=== PATIENT | female | born 1930 | race Caucasian/White ===

== ENCOUNTER 2018-10-16 17:27 | Inpatient (IN) ==
--- NOTE | 2018-10-16 18:45 | EKG Report ---
Test Performed on : 10/16/2018 6:22:56 PM Test Reason : CP Blood Pressure : / mmHG Vent. Rate : 079 BPM Atrial Rate : 133 BPM P-R Int : 000 ms QRS Dur : 074 ms QT Int : 354 ms P-R-T Axes : 000 -21 009 degrees QTc Int : 405 ms Atrial fibrillation. Abnormal ECG When compared with ECG of 09-OCT-2018 15:26, (Unconfirmed) No significant change was found Unconfirmed Result
[2018-10-16 18:49] LABS: BASO# 0.01 X1000 (0.0-0.2); BASO% 0.1 % (0.0-0.8); EOS# 0.05 X1000 (0.0-0.7); EOS% 0.4 % (0.0-10.0); HEMATOCRIT 28.8 % (37.0-47.0); HEMOGLOBIN 9.6 g/dL (12.0-16.0); IMM GRAN# 0.06 X1000 (0.0-0.04); IMM GRAN% 0.5 % (0.0-0.5); LYMPH# 0.77 X1000 (1.2-3.4); LYMPH% 6.2 % (20.5-51.1); MCHC 33.3 g/dL (33-37); MONO# 0.11 X1000 (0.11-0.59); MONO% 0.9 % (1.7-9.3); MPV 8.4 FL (7.4-10.4); NEUT# 11.41 X1000 (1.4-6.5); NEUT% 91.9 % (42.2-75.2); PLT 318 X1000 (130-400); RDW 14.9 % (11.5-14.5); WBC 12.41 X1000 (4.8-10.8)
[2018-10-16 19:03] LABS: ALBUMIN 3.9 g/dL (3.5-5.0); CALCIUM 8.9 mg/dL (8.8-10.2); CREATININE 1.2 mg/dL (0.5-0.9); TOTAL BILIRUBIN 0.6 mg/dL (0.20-1.00); TOTAL PROTEIN 6.5 g/dL (6.3-8.3)
--- NOTE | 2018-10-16 19:14 | Diag Imaging Result Doc PS360 ---
EXAM: CHEST-2 VIEWS INDICATION: sob, chf TECHNIQUE: 2 views COMPARISON: 10/09/2018 FINDINGS: The right chest port is in stable position. Biapical pleural scarring is unchanged. There is mild blunting of the costophrenic angle suggesting very small effusions. These are stable. The central vasculature is mildly prominent suggesting mild pulmonary venous congestion. There is no evidence of pneumothorax. The cardiac silhouette is borderline to mildly prominent but stable. IMPRESSION: Suggestion of mild pulmonary venous congestion and very small effusions that are unchanged. Electronically signed by Mikie Hardwick 10/16/2018 7:11 PM
[2018-10-16] MEDS ORDERED: LASIX IV ONE (19:45)
[2018-10-16 22:58] LABS: BILIRUBIN URINE NEGATIVE (NEGATIVE); BLOOD URINE NEGATIVE (NEGATIVE); CLARITY CLEAR (CLEAR); COLOR YELLOW; GLUCOSE URINE NEGATIVE (NEGATIVE); KETONE URINE NEGATIVE (NEGATIVE); LEUKOCYTES URINE NEGATIVE (NEGATIVE); NITRITE URINE NEGATIVE (NEGATIVE); PROTEIN URINE NEGATIVE (NEGATIVE); URINE BACTERIA NEGATIVE /HFP; URINE EPITHELIAL CELLS <10 /HPF (<10); URINE RBC <10 /HPF (<10); URINE SOURCE CLEAN CATCH; URINE WBC <10 /HPF (<10); UROBILINOGEN URINE NORMAL
--- NOTE | 2018-10-17 02:01 | PROVIDER DOCUMENTATION ---
This chart was entered by Felicitas Pimentel Scribe, acting as scribe for Dave Gibson MD. HPI-General Adult - General Chief Complaint: Return/Recheck Stated Complaint: BODY SWELLING Time Seen by Provider: 10/16/18 17:48 Source: patient Allergies/Adverse Reactions: Patient Allergies Allergy/AdvReac Type Severity Reaction Status Date / Time Penicillins Allergy Severe ANAPHYLAXIS Verified 10/16/18 18:06 Corticosteroids Allergy Unknown Unknown Verified 10/16/18 18:06 (Glucocorticoids) Iodinated Contrast- Oral and Allergy Unknown Unknown Verified 10/16/18 18:06 IV Dye levofloxacin Allergy Unknown Verified 10/16/18 18:06 tramadol Allergy RASH Verified 10/16/18 18:06 codeine AdvReac Severe VOMITING Verified 10/16/18 18:06 adhesive tape AdvReac Unknown Unknown Verified 10/16/18 18:06 hydrochlorothiazide AdvReac Unknown Verified 10/16/18 18:06 Home Medications: Home Medication List Medication Instructions Recorded Confirmed Last Taken Type Cyclobenzaprine [Flexeril] 10 mg PO Q8-12H PRN PRN 07/28/15 10/16/18 10/03/18 History Metoprolol Succinate E.r. [Toprol 50 mg PO DAILY 07/28/15 10/16/18 10/03/18 06:00 History Xl] Alprazolam [Xanax] 0.25 mg PO QHS #15 tablet 08/08/15 10/16/18 10/03/18 Rx Spironolactone 25 mg PO DAILY 01/03/17 10/16/18 10/03/18 History Amlodipine [Norvasc] 2.5 mg PO DAILY 08/29/18 10/16/18 10/03/18 06:00 History Cyanocobalamin (Vitamin B-12) 1,000 mcg PO DAILY 09/30/18 10/16/18 10/02/18 12:00 History [Vitamin B-12] Multivitamin with Minerals 1 each PO DAILY 09/30/18 10/16/18 10/03/18 History [Multiple Vitamin] Hydromorphone [Dilaudid] 1 - 2 tab PO PRN PRN 10/03/18 10/16/18 Unknown History Mv-Mn/Iron/FA/Herbal Cmplx#190 1 tab PO DAILY 10/03/18 10/16/18 10/03/18 History [Vitamin D3 Complete Caplet] Allopurinol 100 mg PO DAILY 10/16/18 10/16/18 Unknown History Hydrocodone/Acetaminophen 1 tab PO PRN PRN 10/16/18 10/16/18 Unknown History [Hydrocodone-Acetamin 5-325 mg] Irbesartan 150 mg PO DAILY 10/16/18 10/16/18 Unknown History Levofloxacin 500 mg PO DAILY 10/16/18 10/16/18 10/16/18 History Metoclopramide HCl 10 mg PO DIRECTED 10/16/18 10/16/18 Unknown History Promethazine [Phenergan] 25 mg PO Q6H PRN PRN 10/16/18 10/16/18 Unknown History Sodium Polystyrene Sulfonate 15 ml PO DIRECTED 10/16/18 10/16/18 Unknown History [Kionex] Vitamin B Complex/Folic Acid [Cvs 0.4 mg PO DAILY 10/16/18 10/16/18 Unknown History Balanced B-100 Tr Caplet] Zinc 50 mg PO DAILY 10/16/18 10/16/18 Unknown History - History of Present Illness -Gen Adult Nature of Presenting Problems: Pt is 88/F presenting to ED w/ Lower extremity swelling that has worsened over the past week. Pt has liver cancer and is currently undergoing chemotherapy treatment. She sts that she has some SOB, but denies and C/P. Pt was seen here last week for the same. Pt has hx of CHF but is not currently on any lasix for edema. Location of Pain/Injury: reports: other (edema in lower extremities) Pain Radiation: reports: no radiation Quality of Pain: reports: none Severity: reports: moderate Onset/Duration: reports: 1 week ago Timing: reports: still present, getting worse Context/Activities at Onset: reports: none Modifying Factors: improves with: nothing Associated Symptoms: reports: shortness of breath. denies: chest pain, diaphoresis, weakness Similar Symptoms Previously?: Yes Recently seen or treated by another doctor?: Yes Review of Systems - Adult - REVIEW OF SYSTEMS - ADULT Constitutional: reports: no symptoms reported. denies: chills, fever Eyes: reports: no symptoms reported Ears, Nose, Mouth & Throat: reports: no symptoms reported Cardiovascular: reports: edema, irregular heart rate. denies: chest pain Respiratory: reports: shortness of breath. denies: cough, wheezing Gastrointestinal: reports: no symptoms reported. denies: abdominal pain, diarrhea, nausea, vomiting Genitourinary: reports: no symptoms reported Musculoskeletal: reports: no symptoms reported Integumentary: reports: no symptoms reported Neurological: reports: no symptoms reported. denies: headache/migraines, numbness, slurred speech Psychiatric: reports: no symptoms reported Past History - Adult - PAST MEDICAL HISTORY-ADULT Review of Records: reports: Old Records Reviewed, Nursing Assessment Review, Medications Reviewed, Social history reviewed & non-contributory. Major Childhood Illnesses: reports: denies history Cardiovascular: reports: A-Fib, HTN, hyperlipidemia Respiratory: reports: asthma Gastrointestinal: reports: denies history Obstetrical/Gynecological: reports: denies history Genitourinary: reports: denies history Musculoskeletal: reports: chronic pain Neurological: reports: Seizures/Epilepsy Psychiatric: reports: denies history Endocrine/Immune: reports: denies history Other Conditions: reports: other cancer (skin) - PRIOR SURGERIES/PROCEDURES Surgical/Procedure History: reports: hysterectomy, orthopedic (extremity), back/neck - IMMUNIZATION STATUS Childhood Immunizations: See Nurse Assessment Flu Vaccine: See Nurse Assessment - FAMILY HISTORY Family History: reviewed, not pertinent - SOCIAL HISTORY Smoking: quit greater than 1 year Substance Use: none/never Alcohol Use Frequency: never Physical Exam-General - PHYSICAL EXAM-ADULT Initial Vital Signs Reviewed: Yes - CONSTITUTIONAL General Appearance: appears well, alert, no apparent distress - EYES Eyes: PERRL/EOMI, pink conjunctivae - HEAD, EARS, NOSE, MOUTH & THROAT HENMT: normocephalic/atraumatic, moist mucous membranes, normal ENT inspection, TMs normal - NECK Neck: non-tender, full range of motion, supple, normal inspection - RESPIRATORY Respiratory: chest non-tender, normal breath sounds, crackles (crackles in lower han bilaterally) - CARDIOVASCULAR Cardiovascular: JVD, irregularly irregular, other (pt has +3 pitting edema lower extremities bilaterally from knees down) - GASTROINTESTINAL (ABDOMEN) Abdominal Exam: normal bowel sounds, non tender, soft - MUSCULOSKELETAL Extremity: normal range of motion, non-tender, normal gait, normal inspection, s welling - SKIN Integumentary: normal color, warm/dry - NEUROLOGIC Neurologic: grossly normal - PSYCHIATRIC Psych/Mental Status: normal mood/affect, normal thought content, normal thought process Progress - PLAN OF CARE/RESULTS Progress/Plan/Lab Results: Vital Signs - 8 hr 10/16/18 17:39 Temperature 98.2 F Pulse Rate 89 Respiratory Rate 18 Blood Pressure 135/69 O2 Sat by Pulse Oximetry 95 Orders Category Date Time Status cxr [CHEST-2 VIEWS] [RAD] Stat Exams 10/16/18 18:21 Ordered BNP [PRO B-NATRIURETIC PEPTIDE] Stat Lab 10/16/18 18:23 Ordered CBC WITH ELECTRONIC DIFF [HEME] Stat Lab 10/16/18 18:23 Ordered COMPREHENSIVE METABOLIC PANEL [CHEM] Stat Lab 10/16/18 18:23 Ordered TROPONIN T Stat Lab 10/16/18 18:20 Ordered EKG [EKG] Stat Ther 10/16/18 18:20 Ordered Result Diagrams: 10/16/18 18:28 10/16/18 18:28 - EKG 1 Time of EKG reading by physician:: 18:30 EKG Read and Signed by:: Melissa Gonzalez EKG Interpretation (*Must complete 3 of following elements*): Abnormal (atrial fibrillation) Rate: 79 Rhythm: atril fibrillation [place]: normal QRS: normal RI Interval: normal ST Wave: normal - CONSULTS/PCP/HOSPITALIST Notification #1 *Consult/PCP/Hospitalist*: Dr. Kaiser Time Discussed: 19:52 Consult Disposition: Admit (Hx, PE and patient care discussed with Dr. Kaiser. Accepted.) Departure - Departure Date of Disposition Decision: 10/16/18 Time of Disposition Decision: 19:51 DIAGNOSIS: CHF exacerbation Qualifiers: Heart failure type: unspecified Qualified Code(s): I50.9 - Heart failure, unspecified Disposition: ADMITTED INPATIENT 09 Certified Medical Emergency: Emergent Condition: Stable - Critical Care Note This patient required my direct & personal management of CC.: No Attestation - Physician/ AMY Attestation Patient care was provided by Advanced Practice Provider:: No The physician spent face to face time with patient:: Yes Advanced Practice Provider documentation review:: Supervising physician onsite and consulted in the evaluation and care of this patient. The physician did have a face to face encounter with the patient. This chart was documented by the indicated scribe, (Felicitas Pimentel Scribe) and accurately reflects the services I performed and decisions made by me, Dave Jay MD, as attested by the provider's signature.
[2018-10-17] MEDS ORDERED: NORVASC PO ONE (14:18)
[2018-10-17] MEDS ORDERED: FLEXERIL PO PRN (14:20)
[2018-10-17] MEDS ORDERED: NORCO-5 PO PRN (14:20)
[2018-10-17 19:02] LABS: ALBUMIN 3.2 g/dL (3.5-5.0); CALCIUM 8.5 mg/dL (8.8-10.2); CREATININE 1.3 mg/dL (0.5-0.9); POTASSIUM 4.4 mmol/L (3.5-5.1); TOTAL BILIRUBIN 0.4 mg/dL (0.20-1.00)
[2018-10-17 19:11] LABS: BASO% 0.2 % (0.0-0.8); EOS# 0.06 X1000 (0.0-0.7); EOS% 0.1 % (0.0-10.0); HEMATOCRIT 27.2 % (37.0-47.0); IMM GRAN# 3.96 X1000 (0.0-0.04); IMM GRAN% 8.6 % (0.0-0.5); LYMPH# 0.97 X1000 (1.2-3.4); LYMPH% 2.1 % (20.5-51.1); MCHC 33.1 g/dL (33-37); MCV 90.7 FL (81-99); MONO# 0.14 X1000 (0.11-0.59); MONO% 0.3 % (1.7-9.3); MPV 9.6 FL (7.4-10.4); NEUT# 40.67 X1000 (1.4-6.5); NEUT% 88.7 % (42.2-75.2); PLT 262 X1000 (130-400); RDW 14.9 % (11.5-14.5)
[2018-10-17 19:45] LABS: BANDS 3 % (0-1); LYMPHS 2 % (21-51); SEGS 95 % (42-75)
[2018-10-17 19:46] LABS: ANISOCYTOSIS OCCASIONAL; MICROCYTOSIS OCCASIONAL
[2018-10-17 19:48] LABS: OVALOCYTES OCCASIONAL; POIKILOCYTOSIS OCCASIONAL
[2018-10-17 19:49] LABS: HYPOCHROM 2+
[2018-10-17] MEDS ORDERED: XANAX PO SCH (21:00)
[2018-10-18] MEDS ORDERED: TOPROL XL PO SCH (09:00)
[2018-10-18] MEDS ORDERED: ALDACTONE PO SCH (09:00)
[2018-10-18] MEDS ORDERED: ZYLOPRIM PO SCH (09:00)
[2018-10-18] MEDS ORDERED: AVAPRO PO SCH ×2 (09:00)
[2018-10-18] MEDS ORDERED: NORVASC PO SCH (09:00)
[2018-10-18] MEDS ORDERED: BLISTEX MEDICATED BERRY LIP BALM TOP PRN (09:43)
--- NOTE | 2018-10-18 13:20 | Diag Imaging Result Doc PS360 ---
EXAM: CHEST-2 VIEWS 10/18/2018 HISTORY: cough TECHNIQUE: PA and lateral chest COMMENT: There is some improvement in the pleural fluid collections present on 10/16/2018. There is an ill-defined nodular opacity laterally in the right lung probably in the middle lobe. This is not changed. There has been multilevel kyphoplasty in the lower thoracic and lumbar spine. IMPRESSION: Improved pleural effusions. Electronically signed by Sam Bernal 10/18/2018 1:18 PM
[2018-10-18 15:47] VITALS: BP 131/58
--- NOTE | 2018-10-25 11:27 | HISTORY AND PHYSICAL ---
HISTORY OF PRESENT ILLNESS: This is a regular office patient of natacha, an 88-year-old female who recently was diagnosed with cancer with large lesions in her liver. She presented to the ER complaining of swelling in her lower extremities that has worsened over the past week. She is undergoing chemotherapy currently. She has been short of breath. Denies chest pain. She had been seen here earlier in the week with the same symptoms. She has a distant history of CHF but nothing lately. In the ER, she had a temperature of 98.2, pulse 89, respiratory rate 18, blood pressure 135/69, O2 saturation was 95%. She had an EKG which showed atrial fibrillation, rate of 79. They admitted her as a CHF. Her laboratory data from admission showed white count was 12,410, hematocrit was 28.8, platelet count was 318. Her comp showed BUN of 34, creatinine 1.2, sodium was 130, potassium 5, chloride 93, CO2 was 25. BUN and creatinine ratio was 28. Glucose 108. LFTs with slight elevation of AST at 56. Bilirubin was fine at 0.6. Her alkaline phosphatase likewise is fine at 101. Cardiac enzymes, troponin was less than 0.010. BNP was 6151. Total protein was 6.5, albumin 3.9, globulin was 3. Urinalysis was negative. Her x-ray report showed mild blunting of the costophrenic angle suggesting small effusions bilaterally, they are stable. Central vasculature was mildly prominent suggesting mild pulmonary venous congestion. There is no evidence of pneumothorax. Cardiac silhouette was otherwise negative. ALLERGIES: She claims she is allergic to penicillin, certain types of steroids, hydrochlorothiazide, adhesive tape, codeine, tramadol, Levaquin, IV dyes. CURRENT MEDICATIONS: Allopurinol 100 daily, alprazolam 0.25 nightly at bedtime, amlodipine 2.5, B12 1000, cyclobenzaprine p.r.n., hydrocodone p.r.n., irbesartan 150 daily, levofloxacin daily started on 10/16/2018, so there goes the supposed allergy. She is on Reglan from her oncologist, metoprolol succinate from her application security specialist, spironolactone 25, promethazine. Her EKG showed atrial fibrillation with rate of 79, nonspecific ST segment changes, otherwise negative. She was admitted on 10/16/2018. PHYSICAL EXAMINATION: VITAL SIGNS: Her pulse rate was 71, respiratory rate 22, blood pressure 160/99, pulse rate was 116, atrial fibrillation. O2 saturation on 2 L was 98%. Her weight was 74.84 kg. HEENT: Head was normocephalic. PERRLA. EOMs intact. Sclerae clear. Nares patent. Oropharynx is negative. NECK: No JVD. CHEST: Clear. CARDIOVASCULAR: Irregular rhythm and rate. ABDOMEN: Soft. There was a fullness in the right upper quadrant. Otherwise negative. EXTREMITIES: Some edema. ADMITTING DIAGNOSES: 1. 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 Liver could be the primary. 2. History of heart failure and hypertension in the past. 3. Presenting with some shortness of breath. Chest x-ray showing that she may be a bit fluid overloaded. She was admitted from the ER as a COPD/heart failure/shortness of breath. We are going to give her Lasix and see how she does simply just giving her Lasix. It could be heart related or atrial fibrillation being a little faster than it typically is. cc: Cassius Kaiser MD
--- NOTE | 2018-12-03 18:25 | PROGRESS NOTE ---
DATE: 10/17/2018 SUBJECTIVE: The patient was admitted with some shortness of breath and a history of newly diagnosed liver cancer with ascites, having significant swelling in her legs, not so much in her lungs. Work of breathing was a little worse. Her chest x-ray on admission showed the right chest port is in stable position. Biapical pleural scarring, mild blunting of the costophrenic angle suggesting a very small effusion. All these are stable. The central vasculature was mildly prominent, suggesting mild pulmonary venous congestion. There is no evidence of pneumo. Cardiac silhouette is slightly prominent. She was given Lasix 40 and amlodipine, medications that she routinely checks and takes at home. She was given some allopurinol that she has been taking because of impending hyperuricemia from her chemo. She was placed on routine irbesartan and spironolactone and given some Xanax. She had a bit of a diuresis and felt better. Talked to Oncology about her white count. That is from her [id number] injection, and she is going to be seen there shortly. She has been in atrial fibrillation, but her rates are controlled with the current medication. Her highest rate was in the 90s. OBJECTIVE: Vital signs: Temperature 98, pulse 87, respiratory rate 20, BP 138/80, O2 saturation 96% on 2 L. ASSESSMENT/PLAN: We are going to discharge her. cc: Cassius Kaiser MD
--- NOTE | 2018-12-03 21:13 | DISCHARGE SUMMARY ---
ADMISSION DATE: 10/16/2018 DISCHARGE DATE: 10/18/2018 HISTORY/HOSPITAL COURSE: Ms. Omer is an 88-year-old female patient of [facility] recently diagnosed with liver cancer and background history of heart failure. She presented to the emergency room with generalized swelling in her lower extremities that had been going on for a week and seemed to be getting more progressive. She had shortness of breath associated with this swelling. This has not been evaluated in the past, so in the ER she was seen with a temperature of 98.2, pulse of 89, respiratory rate of 18 and BP 135/69. Her labs revealed an anemia, and her hematocrit was 28.8. Hemoglobin was 12.4 and white count was 9600. Platelet count was 318,000. EKG showed atrial fibrillation with a rate of 79. On October 18 we repeated her chest x-ray, which showed some improvement in the pleural fluid collection present on 10/16/2018. There was an ill-defined nodular opacity laterally to the right lung, probably in the middle lobe, unchanged. Multiple kyphoplasties and improved pleural effusions. She was breathing better at the time of discharge, and we discharged her on metoprolol 50 daily, Flexeril as needed for spasms she has, alprazolam for anxiety, spironolactone 25 mg, amlodipine 2.5 daily. She was given Dilaudid 2 p.r.n. pain, hydrocodone for pain, levofloxacin, metoprolol, irbesartan, and allopurinol. LABORATORY DATA: She had a later white count of 12,400, hematocrit of 28.8, platelet count of 318. Chemistries revealed a BUN of 34, creatinine of 1.2 and then 1.3. The following day, her white count douglas to 45,900. Hematocrit was 27.2. Platelet count was 262. Her x-rays revealed a chest x-ray that showed biapical scarring, mild blunting of the costophrenic angle suggestive of very small effusions. These were stable. The central vasculature was mildly prominent, suggesting the possibility of pulmonary venous congestion. There was no evidence of pneumothorax. The cardiac silhouette was moderately prominent. Microbiology was not obtained during the stay. Her electrocardiogram showed atrial fibrillation with a rate of approximately 79. MEDICATIONS: Medications on arrival were recorded as allopurinol 100 daily, hydrocodone 5/325 for abdominal pain from her liver cancer. She is on irbesartan 150. She was placed on levofloxacin for the pulmonary edema/maybe pneumonia. Phenergan was used p.r.n. DISPOSITION: We will see her back. The patient has presumably mild CHF and is currently undergoing chemotherapy. Her breathing improved with the Lasix that she received. We discharged her back on her home medicines. She is following up with Oncology in the next day. cc: Cassius Kaiser MD
== END 2018-10-18 19:54 | disposition home or self-care (01) | DRG 292 ==
LOC: P.ED 17:27 → P.MEDSURG 21:09
PROVIDERS: ADMIT Internal Medicine; ATTEND Internal Medicine
CPT/HCPCS: 71020; 71046; 80053; 81001; 83880; 84484; 85025; 93005; 96374; 99285; A9270; J1940

== ENCOUNTER 2019-09-04 13:23 | Inpatient (IN) ==
--- NOTE | 2019-09-04 15:01 | Diag Imaging Result Doc PS360 ---
CHEST-PORTABLE - 09/04/2019 INDICATION: WEAK, FALL COMPARISON: 08/18/2019 FINDINGS: Stable right chest port in good position. The lungs are clear. Heart size is normal. No pneumothorax or pleural effusion. IMPRESSION: Negative exam. Electronically signed by Yohannes Lozano 09/04/2019 2:58 PM
[2019-09-04 17:18] LABS: URINE SOURCE CLEAN CATCH
[2019-09-04 17:29] LABS: BILIRUBIN URINE NEGATIVE (NEGATIVE); BLOOD URINE NEGATIVE (NEGATIVE); COLOR YELLOW; GLUCOSE URINE NEGATIVE (NEGATIVE); KETONE URINE NEGATIVE (NEGATIVE); LEUKOCYTES URINE SMALL (NEGATIVE); NITRITE URINE NEGATIVE (NEGATIVE); PROTEIN URINE TRACE mg/dL (NEGATIVE); SP GRAVITY URINE 1.015; TURBIDITY URINE HAZY (CLEAR); UROBILINOGEN URINE NORMAL (NORMAL)
--- NOTE | 2019-09-04 17:34 | Diag Imaging Result Doc PS360 ---
CT HEAD W/O CONTRAST - 09/04/2019 INDICATION: FALL, HEAD INJURY COMPARISON: 05/03/2017 FINDINGS: There is stable severe diffuse cerebral atrophy. Stable mild periventricular white matter chronic microvascular ischemia. No intracranial mass or hemorrhage. The skull is intact. The sinuses are clear. IMPRESSION: Stable chronic changes. No acute injury. This exam was performed using automated exposure control, adjustment of mA or kV according to patient size, and/or use of iterative reconstruction technique Electronically signed by Yohannes Lozano 09/04/2019 5:31 PM
--- NOTE | 2019-09-04 17:39 | EKG Report ---
Test Performed on : 09/04/2019 2:49:06 PM Test Reason : WEAK,FALL Blood Pressure : / mmHG Vent. Rate : 082 BPM Atrial Rate : 093 BPM P-R Int : 000 ms QRS Dur : 070 ms QT Int : 340 ms P-R-T Axes : 000 -29 051 degrees QTc Int : 397 ms Atrial fibrillation. Septal infarct (cited on or before 13-DEC-2018) Abnormal ECG When compared with ECG of 13-DEC-2018 00:57, T wave inversion no longer evident in Inferior leads Unconfirmed Result
[2019-09-04 17:43] LABS: UR AMPHETAMINES QUAL NONE DETECTED (NONE DETECT); UR BARBITUATES QUAL NONE DETECTED (NONE DETECT); UR BENZODIAZEPIN QUAL PRESUMPTIVE POSITIVE (NONE DETECT); UR CANNABINOIDS QUAL NONE DETECTED (NONE DETECT); UR COCAINE QUAL NONE DETECTED (NONE DETECT); UR METHADONE QUAL NONE DETECTED (NONE DETECT); UR METHAMPHETAMINE QUAL NONE DETECTED (NONE DETECT); UR OPIATES QUAL PRESUMPTIVE POSITIVE (NONE DETECT); UR OXYCODONE QUAL NONE DETECTED (NONE DETECT); UR PCP QUAL NONE DETECTED (NONE DETECT); UR PROPOXYPHENE QUAL NONE DETECTED (NONE DETECT); UR TCA QUAL NONE DETECTED (NONE DETECT)
--- NOTE | 2019-09-04 17:48 | Diag Imaging Result Doc PS360 ---
COCCYX/SACRUM - 09/04/2019 INDICATION: FALL, INJURY TECHNIQUE: Three views COMPARISON: 05/08/2017 FINDINGS: Bones are extremely osteopenic. There is advanced degeneration of the sacroiliac joints stable from prior. There are numerous compression fractures in the spine. No obvious abnormality of the sacrum or coccyx. IMPRESSION: No obvious acute injury. Electronically signed by Yohannes Lozano 09/04/2019 5:46 PM
[2019-09-04] MEDS ORDERED: ROCEPHIN 1 GM in NS 50 ML IV ONE (18:15)
[2019-09-04] MEDS ORDERED: NS 500 ML IV ONE (18:15)
[2019-09-04 18:27] LABS: UR EPITHELIAL CELLS >10 /HPF (<10); URINE BACTERIA 1+ /HPF; URINE CASTS NONE SEEN; URINE CRYSTALS NONE SEEN; URINE RBC <10 /HPF (<10); URINE YEAST NONE SEEN
--- NOTE | 2019-09-04 18:47 | PROVIDER DOCUMENTATION ---
This chart was entered by Lacey Arreaga Scribe, acting as scribe for Woodrow Plasencia MD. HPI-Head Injury - General Chief Complaint: Weakness Stated Complaint: FALL Time Seen by Provider: 09/04/19 13:35 Source: patient, family Allergies/Adverse Reactions: Patient Allergies Allergy/AdvReac Type Severity Reaction Status Date / Time Penicillins Allergy Severe ANAPHYLAXIS Verified 09/04/19 08:21 Corticosteroids Allergy Unknown Tremors Verified 09/04/19 08:21 (Glucocorticoids) Iodinated Contrast Media Allergy Unknown Unknown Verified 09/04/19 08:21 levofloxacin Allergy Unknown Verified 09/04/19 08:21 tramadol Allergy RASH Verified 09/04/19 08:21 codeine AdvReac Severe VOMITING Verified 09/04/19 08:21 adhesive tape AdvReac Unknown Skin tears Verified 09/04/19 08:21 hydrochlorothiazide AdvReac Hyponatremi Verified 09/04/19 08:21 a Home Medications: Home Medication List Medication Instructions Recorded Confirmed Last Taken Type Cyclobenzaprine [Flexeril] 5 - 10 mg PO Q8-12H PRN PRN 07/28/15 09/04/19 09/03/19 History Metoprolol Succinate E.r. [Toprol 50 mg PO DAILY 07/28/15 09/04/19 09/03/19 History Xl] Alprazolam [Xanax] 0.25 mg PO QHS #15 tablet 08/08/15 09/04/19 09/03/19 Rx Spironolactone 12.5 mg PO DAILY 01/03/17 09/04/19 09/03/19 History Hydromorphone [Dilaudid] 0.5 - 1 tab PO PRN PRN 10/03/18 09/04/19 09/03/19 History Irbesartan 150 mg PO DAILY 10/16/18 09/04/19 09/03/19 History Alprazolam 0.5 tab PO QAM 09/04/19 09/04/19 09/03/19 History Clonidine HCl 0.1 mg PO BID PRN PRN 09/04/19 09/04/19 Unknown History Simethicone [Phazyme] 180 mg PO DAILY 09/04/19 09/04/19 09/03/19 History - History of Present Illness-Head Injury Nature of Presenting Problem: 89 yof presents Head Injury Location: reports: occipital Other injuries associated with incident:: reports: none Quality of Pain: reports: aching Severity: reports: moderate Onset/Duration: reports: this morning Timing: reports: still present Method of Injury: reports: fell Any recent trauma/injury?: reports: minor, to head Loss of Consciousness: no loss of consciousness Modifying Factors: improves with: nothing Injury Associated Symptoms: reports: headaches. denies: back/neck pain, chest pain, dizziness, nausea, shortness of breath, vomiting Locality of Occurance: Home Similar Symptoms Previously?: Yes Recently seen or treated by another doctor?: Yes (was seen at [facility] by dr craig prior to coming to [facility]) Review of Systems - Adult - REVIEW OF SYSTEMS - ADULT Constitutional: denies: chills Eyes: denies: blurred vision, double vision Ears, Nose, Mouth & Throat: reports: no symptoms reported Cardiovascular: denies: chest pain, palpitations Respiratory: denies: cough, shortness of breath, wheezing Gastrointestinal: denies: diarrhea, nausea, vomiting Genitourinary: reports: no symptoms reported Musculoskeletal: denies: back pain, neck pain Integumentary: reports: no symptoms reported Neurological: reports: see HPI, headache/migraines, loss of balance. denies: dizziness/vertigo, syncope, tremors Psychiatric: reports: no symptoms reported Endocrine: reports: no symptoms reported Hematologic/Lymphatic: reports: no symptoms reported Allergic/Immunologic: reports: no symptoms reported All Other Systems: Reviewed and Negative Past History - Adult - PAST MEDICAL HISTORY-ADULT Review of Records: reports: Nursing Assessment Review, Medications Reviewed, Social history reviewed & non-contributory. Major Childhood Illnesses: reports: denies history Cardiovascular: reports: A-Fib, HTN, hyperlipidemia Respiratory: reports: asthma Gastrointestinal: reports: denies history Obstetrical/Gynecological: reports: denies history Genitourinary: reports: denies history Musculoskeletal: reports: chronic pain Neurological: reports: Seizures/Epilepsy Psychiatric: reports: denies history Endocrine/Immune: reports: denies history Other Conditions: reports: other cancer (skin) - PRIOR SURGERIES/PROCEDURES Surgical/Procedure History: reports: hysterectomy, orthopedic (extremity), back/neck - IMMUNIZATION STATUS Childhood Immunizations: See Nurse Assessment Flu Vaccine: See Nurse Assessment - FAMILY HISTORY Family History: reviewed, not pertinent - SOCIAL HISTORY Smoking: quit greater than 1 year Substance Use: denies Living Situation: family Physical Exam- Neurological - Physical Exam-Neuro Initial Vital Signs Reviewed: Yes General Appearance: appears well, alert, no apparent distress Eye Exam: bilateral eye: normal inspection, PERRL, EOMI HENMT: moist mucous membranes Head Injury: other (has wound to occipital head that dr craig cleaned and glued [employer] in this ed) Neck: non-tender, full range of motion, supple, normal inspection Respiratory: chest non-tender, lungs clear, normal breath sounds Cardiovascular: normal peripheral pulses, irregularly irregular Abdominal Exam: normal bowel sounds, non tender, soft Lymphatic: no adenopathy Extremity: normal range of motion, non-tender, normal inspection, 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 Exam: normal hearing, normal speech, PERRL Motor/Sensory: no motor deficit, no sensory deficit, no pronator drift Neurologic: grossly normal, no motor/sensory deficits Integumentary: normal color, normal turgor, warm/dry Psych/Mental Status: normal mood/affect, normal thought content, normal thought process, oriented x 3 - Glascow Coma Scale Best Eye Response: (4) open spontaneously Best Verbal Response: (5) oriented Best Motor Response: (6) obeys commands Total Glascow Score: 15 Progress - PLAN OF CARE/RESULTS Progress/Plan/Lab Results: Vital Signs - 8 hr 09/04/19 13:34 09/04/19 14:12 09/04/19 15:16 Temperature 98.0 F Pulse Rate 94 H 90 Pulse Rate [Sitting] 100 H Pulse Rate [Standing] 101 H Pulse Rate [Supine] 92 H Respiratory Rate 18 18 Blood Pressure 159/81 168/106 Blood Pressure [Sitting] 157/74 Blood Pressure [Standing] 148/72 Blood Pressure [Supine] 166/70 O2 Sat by Pulse Oximetry 98 95 09/04/19 16:54 Temperature Pulse Rate 102 H Pulse Rate [Sitting] Pulse Rate [Standing] Pulse Rate [Supine] Respiratory Rate 18 Blood Pressure 160/104 Blood Pressure [Sitting] Blood Pressure [Standing] Blood Pressure [Supine] O2 Sat by Pulse Oximetry 96 Laboratory Results - last 24 hr 09/04/19 09/04/19 09/04/19 14:35 14:35 14:35 Magnesium 1.6 Troponin T High Sens 38 H Plasma Lactate 1.3 Urine Source Urine Color Urine Turbidity Urine pH Ur Specific [place] Urine Protein Ur Glucose (Stick) Ur Ketones (Stick) Urine Blood Urine Nitrite Urine Bilirubin Urobilinogen Dipstick Urine Leukocytes Urine WBC (Auto) Urine RBC (Auto) U Epithel Cells (Auto) Urine Bacteria (Auto) Urine Crystals Small Round Cells Urine Casts Urine Yeast-like Cells Urine Opiates Screen Ur Oxycodone Screen Urine Methadone Screen U Propoxyphene Qual Ur Barbituates Screen Ur Tricyclics Screen Ur Phencyclidine Scrn Ur Amphetamines Screen U Methamphetamines Scrn U Benzodiazepines Scrn Urine Cocaine Screen U Cannabinoids Screen 09/04/19 09/04/19 17:05 17:05 Magnesium Troponin T High Sens Plasma Lactate Urine Source CLEAN CATCH Urine Color YELLOW Urine Turbidity HAZY Urine pH 7.0 Ur Specific [place] 1.015 Urine Protein TRACE A Ur Glucose (Stick) NEGATIVE Ur Ketones (Stick) NEGATIVE Urine Blood NEGATIVE Urine Nitrite NEGATIVE Urine Bilirubin NEGATIVE Urobilinogen Dipstick NORMAL Urine Leukocytes SMALL A Urine WBC (Auto) 10-20 A Urine RBC (Auto) <10 U Epithel Cells (Auto) >10 A Urine Bacteria (Auto) 1+ Urine Crystals NONE SEEN Small Round Cells Not Reportable Urine Casts NONE SEEN Urine Yeast-like Cells NONE SEEN Urine Opiates Screen PRESUMPTIVE POSITIVE A Ur Oxycodone Screen NONE DETECTED Urine Methadone Screen NONE DETECTED U Propoxyphene Qual NONE DETECTED Ur Barbituates Screen NONE DETECTED Ur Tricyclics Screen NONE DETECTED Ur Phencyclidine Scrn NONE DETECTED Ur Amphetamines Screen NONE DETECTED U Methamphetamines Scrn NONE DETECTED U Benzodiazepines Scrn PRESUMPTIVE POSITIVE A Urine Cocaine Screen NONE DETECTED U Cannabinoids Screen NONE DETECTED Orders Category Date Time Status Saline Loc NOW Care 09/04/19 14:19 Active CHEST-PORTABLE [RAD] Stat Exams 09/04/19 14:19 Completed COCCYX/SACRUM [RAD] Stat Exams 09/04/19 15:[address] HEAD W/O CONTRAST [CT] Stat Exams 09/04/19 15:17 Completed LACTATE, PLASMA [CHEM] Stat Lab 09/04/19 14:35 Completed MAGNESIUM [CHEM] Stat Lab 09/04/19 14:35 Completed TROPONIN T HIGH SENSITIVITY Stat Lab 09/04/19 14:35 Completed URINALYSIS W/POSS RFLX CULT [URINALYSIS] Stat Lab 09/04/19 17:05 Completed URINE CULTURE [RM] Routine Lab 09/04/19 17:05 Re[address] DRUG SCREEN [address] Stat Lab 09/04/19 17:05 Completed URINE MANUAL MICROSCOPIC [URINALYSIS] Stat Lab 09/04/19 17:05 Completed 0.9% Sodium Chloride Inj [Ns] 500 ml Med 09/04/19 18:15 Active IV 999 mls/hr CefTRIAXONE [Rocephin] 1 gm Med 09/04/19 18:15 Active 0.9% Sodium Chloride Inj [Ns] 50 ml IV NOW EKG [EKG] Stat Ther 09/04/19 14:19 Draft - REASSESSMENT Reassessment #1 Time Reassessed: 14:56 Status: unchanged (pt is resting in bed) - EKG 1 Time of EKG reading by physician:: 14:49 EKG Read and Signed by:: Woodrow Plasencia EKG Interpretation (*Must complete 3 of following elements*): Abnormal Rate: 82 Rhythm: afib [place]: normal QRS: normal ME Interval: normal Comments: septal infarct, ageundetermined - XRAY 1 XRAY: Bilateral XRAY Study: Chest Impression: See EMR Report (CHEST-PORTABLE - 09/04/2019 INDICATION: WEAK, FALL COMPARISON: 08/18/2019 FINDINGS: Stable right chest port in good position. The lungs are clear. Heart size is normal. No pneumothorax or pleural effusion. IMPRESSION: Negative exam. Electronically signed by Yohannes Lozano 09/04/2019 2:58 PM 09/04/19 1458 Interpreting Physician: Yohannes Lozano MD Dictated Date/Time: 09/04/19 1458 cc: Woodrow Plasencia MD; Cassius Siddiqui MD) 2 XRAY Study: other (coccoyx and sacrum) Impression: See EMR Report - CT/MRI 1 CT Study: Head Impression: See EMR Report - CONSULTS/PCP/HOSPITALIST Notification #1 *Consult/PCP/Hospitalist*: dr siddiqui PMD Time Discussed: 14:11 (dr siddiqui request that they nurse reaches out to rehab intake to look for placement) Reason/Comments: phone consult #2 Consult: DR SIDDIQUI Time Discussed: 18:44 Consult Disposition: Admit Departure - Departure Date of Disposition Decision: 09/04/19 Time of Disposition Decision: 18:44 DIAGNOSIS: Hyponatremia, Fall from ground level, Weak, Gait disturbance Scalp laceration Qualifiers: Encounter type: initial encounter Qualified Code(s): S01.01XA - Laceration without foreign body of scalp, initial encounter Closed head injury Qualifiers: Encounter type: initial encounter Qualified Code(s): S09.90XA - Unspecified in jury of head, initial encounter Sacral contusion Qualifiers: Encounter type: initial encounter Qualified Code(s): S30.0XXA - Contusion of lower back and pelvis, initial encounter Disposition: ADMITTED INPATIENT 09 Certified Medical Emergency: Emergent Condition: Fair Referrals and Follow-Ups: Cassius Siddiqui MD [Primary Care Provider] - - Critical Care Note This patient required my direct & personal management of CC.: No Attestation - Physician/ AMY Attestation Patient care was provided by Advanced Practice Provider:: No The physician spent face to face time with patient:: Yes Advanced Practice Provider documentation review:: Supervising physician onsite and consulted in the evaluation and care of this patient. The physician did have a face to face encounter with the patient. This chart was documented by the indicated scribe, (Lacey Arreaga Scribe) and accurately reflects the services I performed and decisions made by me, Woodrow Plasencia MD, as attested by the provider's signature.
[2019-09-05] MEDS ORDERED: ZOFRAN IV PRN (01:04)
[2019-09-05] MEDS ORDERED: CATAPRES PO PRN (01:04)
[2019-09-05] MEDS ORDERED: TYLENOL PO PRN (01:04)
[2019-09-05 03:07] LABS: BASO# 0.04 X1000 (0.0-0.2); EOS# 0.04 X1000 (0.0-0.7); HEMOGLOBIN 9.9 g/dL (12.0-16.0); LYMPH# 0.56 X1000 (1.2-3.4); LYMPH% 28.4 % (20.5-51.1); MCH 27.7 PG (27-31); MCHC 30.9 g/dL (33-37); MCV 89.4 FL (81-99); MONO# 0.45 X1000 (0.11-0.59); MONO% 22.8 % (1.7-9.3); MPV 9.3 FL (7.4-10.4); NEUT# 0.88 X1000 (1.4-6.5); NEUT% 44.8 % (42.2-75.2); PLT 469 X1000 (130-400); RBC 3.58 XMIL (4.2-5.4); RDW 16.1 % (11.5-14.5); WBC 1.97 X1000 (4.8-10.8)
[2019-09-05 03:22] LABS: ALBUMIN 3.7 g/dL (3.5-5.0); CALCIUM 9.7 mg/dL (8.8-10.2); CREATININE 1.1 mg/dL (0.5-0.9); POTASSIUM 5.1 mmol/L (3.5-5.1); TOTAL BILIRUBIN 0.5 mg/dL (0.20-1.00); TOTAL PROTEIN 6.3 g/dL (6.3-8.3)
[2019-09-05] MEDS: FLEXERIL PO SCH ×3 (03:36→21:09)
[2019-09-05] MEDS: XANAX PO SCH ×3 (03:36→21:09)
[2019-09-05] MEDS: AVAPRO PO SCH ×3 (03:41→21:10)
[2019-09-05] MEDS: ALDACTONE PO SCH (11:09)
[2019-09-05] MEDS: TOPROL XL PO SCH (11:09)
[2019-09-05] MEDS: LASIX PO SCH (11:10)
[2019-09-05] MEDS: ZYLOPRIM PO SCH (11:10)
[2019-09-05 17:26] LABS: BASO# 0.05 X1000 (0.0-0.2); BASO% 2.2 % (0.0-0.8); EOS# 0.13 X1000 (0.0-0.7); EOS% 5.8 % (0.0-10.0); HEMATOCRIT 30.3 % (37.0-47.0); HEMOGLOBIN 9.5 g/dL (12.0-16.0); IMM GRAN# 0.01 X1000 (0.0-0.04); IMM GRAN% 0.4 % (0.0-0.5); LYMPH# 0.88 X1000 (1.2-3.4); LYMPH% 39.3 % (20.5-51.1); MCH 27.7 PG (27-31); MCHC 31.4 g/dL (33-37); MCV 88.3 FL (81-99); MONO% 22.3 % (1.7-9.3); MPV 8.4 FL (7.4-10.4); NEUT# 0.67 X1000 (1.4-6.5); PLT 427 X1000 (130-400); RBC 3.43 XMIL (4.2-5.4); RDW 15.7 % (11.5-14.5); WBC 2.24 X1000 (4.8-10.8)
[2019-09-05 18:42] LABS: ALBUMIN 2.8 g/dL (3.5-5.0); CALCIUM 8.6 mg/dL (8.8-10.2); CREATININE 0.9 mg/dL (0.5-0.9); POTASSIUM 4.1 mmol/L (3.5-5.1); TOTAL BILIRUBIN 0.2 mg/dL (0.20-1.00); TOTAL PROTEIN 5.9 g/dL (6.3-8.3)
[2019-09-05] MEDS ORDERED: NS 1,000 ML IV SCH (19:45)
[2019-09-05 19:54] LABS: EOS 4 % (1-10); LYMPHS 40 % (21-51); MONO 16 % (1-9); SEGS 40 % (42-75)
[2019-09-05 19:55] LABS: ANISOCYTOSIS OCCASIONAL; OVALOCYTES OCCASIONAL; POIKILOCYTOSIS OCCASIONAL
[2019-09-05] MEDS: DILAUDID IM PRN (21:10)
[2019-09-06] MEDS: DILAUDID IM PRN ×2 (04:42→23:10)
[2019-09-06] MEDS: FLEXERIL PO SCH ×3 (04:42→22:38)
[2019-09-06 07:17] LABS: HEMATOCRIT 31.4 % (37.0-47.0); HEMOGLOBIN 9.8 g/dL (12.0-16.0); MCH 27.6 PG (27-31); MCHC 31.2 g/dL (33-37); MCV 88.5 FL (81-99); MPV 8.4 FL (7.4-10.4); RBC 3.55 XMIL (4.2-5.4); RDW 15.6 % (11.5-14.5); WBC 2.68 X1000 (4.8-10.8)
[2019-09-06 07:49] LABS: CALCIUM 8.8 mg/dL (8.8-10.2); POTASSIUM 4.4 mmol/L (3.5-5.1); TOTAL BILIRUBIN 0.2 mg/dL (0.20-1.00)
[2019-09-06] MEDS: AVAPRO PO SCH ×2 (08:09→22:38)
[2019-09-06] MEDS: ALDACTONE PO SCH (08:10)
[2019-09-06] MEDS: ZYLOPRIM PO SCH (08:10)
[2019-09-06] MEDS: XANAX PO SCH ×2 (08:10→22:38)
[2019-09-06] MEDS: TOPROL XL PO SCH (08:10)
[2019-09-06] MEDS: LASIX PO SCH (08:27)
[2019-09-07] MEDS: FLEXERIL PO SCH ×4 (05:52→20:42)
[2019-09-07 06:51] LABS: ALBUMIN 2.8 g/dL (3.5-5.0); CALCIUM 8.9 mg/dL (8.8-10.2); POTASSIUM 4.2 mmol/L (3.5-5.1); TOTAL BILIRUBIN 0.2 mg/dL (0.20-1.00); TOTAL PROTEIN 5.7 g/dL (6.3-8.3)
[2019-09-07] MEDS: DILAUDID IM PRN ×2 (08:17→22:45)
[2019-09-07] MEDS: AVAPRO PO SCH ×2 (08:18→20:43)
[2019-09-07] MEDS: LASIX PO SCH (08:18)
[2019-09-07] MEDS: XANAX PO SCH ×2 (08:18→20:43)
[2019-09-07] MEDS: ALDACTONE PO SCH (08:18)
[2019-09-07] MEDS: TOPROL XL PO SCH (08:19)
[2019-09-07] MEDS: ZYLOPRIM PO SCH (08:19)
--- NOTE | 2019-09-07 19:25 | HISTORY AND PHYSICAL ---
HISTORY OF PRESENT ILLNESS: The patient was admitted to the hospital via a visit to the Emergency Room. She apparently had fallen secondary to weakness and injured her head in the occiput area. She had no other associated injuries, just aching and headache, moderate in intensity that began the morning of her presentation and still present in the ER after being evaluated. She fell and had a minor injury to her head. Denied loss of consciousness. She denied any back, neck, or chest pain. She denied any dizziness, nausea, shortness of breath, or vomiting. This happened at her home. She has fallen before. She had been seen at [facility] by Dr. Edwards prior to coming to [facility] in the ED. REVIEW OF SYSTEMS: Constitutional: She denies any chills or fever. Denies significant weight gain, maybe some weight loss. Eyes: No change in her vision acuity. No blindness. No double vision. Ears, nose, and throat: No symptoms reported. Cardiovascular: She denies chest pain or palpitations. Denies peripheral edema, PND, orthopnea, or claudication. Respiratory: She denied cough, shortness of breath, or wheezing. Gastrointestinal: She denied nausea, vomiting, diarrhea, constipation, bloody or black stools. Genitourinary: No urinary symptoms were reported. No dysuria, hematuria, polyuria, or pyuria. Musculoskeletal: Denies back and neck pain. Skin: No rashes. Some senile ecchymoses on her upper extremities. Neurological: She complains of some headaches and her balance has not been as well as it has been previously. She is weak. Difficult to get up. Denies dizziness, vertigo, syncope, tremors. Psychiatric: Negative. Endocrine: No symptoms reported for polyuria, polydipsia, heat or cold intolerance. Hematological: No bleeding or clotting issues. Allergic/immunologic: No cough. No rashes. PAST MEDICAL HISTORY: She has had a history of atrial fibrillation, hypertension, hyperlipidemia, and asthma. She has a distant history of seizures. She has a history of cancer of the liver. PAST SURGICAL HISTORY: Hysterectomy, back surgery, back and neck injuries. SOCIAL HISTORY: She quit smoking greater than a year ago. Lives with her family. Family was hesitant about her going home and they were interested in getting us to keep her. PHYSICAL EXAMINATION: VITAL SIGNS: At the time of admission, she was afebrile. Temperature was 98, pulse in the 90s, orthostatic pulse supine 91, standing 101, respiratory rate 18, blood pressure 159/81 to 168/106. O2 saturations 98% and 95%. HEENT: Head normocephalic except for the injury on her occiput. Eyes were PERRL, EOMs intact. SC clear. Fundi benign. Nares patent. Oropharynx negative. NECK: Supple. Carotids were bounding without bruits. No thyromegaly. CHEST: Clear. CARDIOVASCULAR EXAM: Regular rhythm and rate. No murmurs, gallops, clicks, or rub. ABDOMEN: Soft. No hepatosplenomegaly. EXTREMITIES: Negative. NEUROLOGIC: She was alert and oriented. In no distress. So, she was admitted as atrial fibrillation. Normal CT of the head, coccyx, and sacrum. Was noted in her workup to be hyponatremic. She fell from ground level. She was weak with gait disturbance. She had a laceration without foreign body to the scalp. She had a contusion to her lower back and pelvis. She was admitted for consideration for rehab and placement to rehab, where she is undergoing chemotherapy and naturally is weak with that diagnosis and that treatment. LABORATORY DATA: Plasma lactate was 1.3. Magnesium 1.6. Troponin 38. She actually had her chemo and her counts were sort of on a low spell for the patient. White count 1,970, hematocrit 32, platelet count 469,000. Chemistries: Sodium 131, potassium 5.1, chloride 95, CO2 21, BUN 20, creatinine 1.1. GFR 47. Glucose 105. LFTs normal. Alkaline phosphatase slightly elevated. Urine with 1+ bacteria; 10-20 white cells. Toxicology positive for benzodiazepines and opiates. She was admitted for observation and rehab to try and get her back to where she can live alone at home. Family wants her to go through some strengthening rehab. cc: Cassius Kaiser MD
[2019-09-08] MEDS: FLEXERIL PO SCH ×3 (05:49→22:15)
[2019-09-08] MEDS: DILAUDID IM PRN ×2 (09:21→18:47)
[2019-09-08] MEDS: LASIX PO SCH (09:22)
[2019-09-08] MEDS: ALDACTONE PO SCH (09:23)
[2019-09-08] MEDS: ZYLOPRIM PO SCH (09:23)
[2019-09-08] MEDS: XANAX PO SCH ×2 (09:23→22:15)
[2019-09-08] MEDS: TOPROL XL PO SCH (09:23)
[2019-09-08] MEDS: AVAPRO PO SCH ×2 (09:23→22:15)
[2019-09-09] MEDS: FLEXERIL PO SCH ×2 (06:11→13:03)
[2019-09-09] MEDS: ALDACTONE PO SCH (09:30)
[2019-09-09] MEDS: XANAX PO SCH (09:30)
[2019-09-09] MEDS: DILAUDID IM PRN (09:30)
[2019-09-09] MEDS: TOPROL XL PO SCH (09:31)
[2019-09-09] MEDS: LASIX PO SCH (09:31)
[2019-09-09] MEDS: ZYLOPRIM PO SCH (09:31)
[2019-09-09] MEDS: AVAPRO PO SCH (09:31)
[2019-09-09 13:46] VITALS: BP 108/41
--- NOTE | 2019-09-09 15:26 | DISCHARGE SUMMARY ---
ADMISSION DATE: 09/04/2019 DISCHARGE DATE: 09/09/2019 HISTORY OF PRESENT ILLNESS: This patient was admitted to the hospital after experiencing some falls. She has a history of atrial fibrillation, hypertension, dyslipidemia, and asthma. She is status post hysterectomy, several back surgeries, and neck injuries. She quit smoking greater than a year ago. She lives with her family. So, she came to the ER with having a fall secondary to weakness and injured her head. She had that managed in the ER. She was kept in the ER for a period of time. She denied loss of consciousness and she denied any back, neck, or chest pain. 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 Currently, the situation is that she lives alone and is unable to get up out of her chair secondary to weakness. She has being going through chemo. She has not had any chemo recently. We have discussed her chemo plan with the oncologist, who wants her to try to rehab for three weeks prior to giving her another course of chemo, which would make her weak even still. So, we are interested in sending her to a rehab, try to see if we can get her up on her feet. If not, maybe assisted living. But, currently they are holding chemotherapy because of her weakness and because of this potential rehab visitation. So, she is going to be discharged to the rehab center. cc: Cassius Kaiser MD
== END 2019-09-09 16:22 | DRG 641 ==
LOC: P.ED 13:23 → P.EDIPHOLD 23:15 → P.MEDSURG 09-05 00:47
PROVIDERS: ADMIT Internal Medicine; ATTEND Internal Medicine